=== PATIENT | male | born 1980 | race Caucasian/White ===

== ENCOUNTER 2017-04-16 20:03 | Emergency (ER) | payer MEDICAID, SELFPAY ==
[~2017-04-16] VITALS: Ht 175.3 cm; Wt 80.0 kg
[2017-04-16 20:05] VITALS: BP 109/75
[2017-04-16 20:33] LABS: CULTURE INDICATED? YES; MICROSCOPIC INDICATED
[2017-04-16] MEDS ORDERED: CEFTRIAXONE 250 MG ONE (21:25)
[2017-04-16] MEDS ORDERED: AZITHROMYCIN 500 MG TABLET ONE (21:25)
[2017-04-16] MEDS ORDERED: AZITHROMYCIN 500 MG TABLET PO ONE (21:30)
[2017-04-16] MEDS ORDERED: CEFTRIAXONE 1,000 MG IM ONE (21:30)
== END 2017-04-16 21:56 | disposition home or self-care (01) ==
LOC: ED 21:00
DX: N30.90 Cystitis, unspecified without hematuria (principal); N34.1 Nonspecific urethritis
CPT/HCPCS: 81001; 87086; 96372; 99284; J0696

== ENCOUNTER 2018-06-21 00:34 | Emergency (ER) | payer MEDICAID ==
[~2018-06-21] VITALS: Ht 175.3 cm; Wt 76.7 kg
[2018-06-21 00:36] VITALS: BP 131/78
== END 2018-06-21 00:56 | disposition home or self-care (01) ==
LOC: ED 00:55
DX: B86 Scabies (principal); F15.20 Other stimulant dependence, uncomplicated; F17.210 Nicotine dependence, cigarettes, uncomplicated
CPT/HCPCS: 99283

== ENCOUNTER 2018-09-21 10:43 | Emergency (ER) | payer MEDICAID ==
[~2018-09-21] VITALS: Ht 175.3 cm; Wt 80.9 kg
[2018-09-21 12:36] VITALS: BP 110/71
== END 2018-09-21 12:46 | disposition home or self-care (01) ==
LOC: ED 12:40
DX: F15.159 Other stimulant abuse with stimulant-induced psychotic disorder, unspecified (principal); F12.159 Cannabis abuse with psychotic disorder, unspecified; T40.7X5A Adverse effect of cannabis (derivatives), initial encounter; F41.9 Anxiety disorder, unspecified; F17.200 Nicotine dependence, unspecified, uncomplicated; Z72.9 Problem related to lifestyle, unspecified; Z90.81 Acquired absence of spleen; Y92.89 Other specified places as the place of occurrence of the external cause
CPT/HCPCS: 82962; 99284

== ENCOUNTER 2018-09-21 16:10 | Emergency (ER) | payer MEDICAID | END 2018-09-21 16:29 | disposition left against medical advice (07) | LOC: ED 16:23 | DX: F15.129 Other stimulant abuse with intoxication, unspecified (principal); Z72.9 Problem related to lifestyle, unspecified; Z90.81 Acquired absence of spleen | CPT/HCPCS: 99283 ==

== ENCOUNTER 2018-09-26 00:25 | Emergency (ER) | payer MEDICAID ==
[~2018-09-26] VITALS: Ht 175.3 cm; Wt 79.0 kg
[2018-09-26 00:31] VITALS: BP 123/94
== END 2018-09-26 01:05 | disposition home or self-care (01) ==
LOC: ED 01:00
DX: B86 Scabies (principal)
CPT/HCPCS: 99283

== ENCOUNTER 2018-10-01 21:44 | Emergency (ER) | payer SELFPAY ==
[~2018-10-01] VITALS: Ht 175.3 cm; Wt 79.0 kg
[2018-10-01 21:47] VITALS: BP 139/84
[2018-11-27] MEDS ORDERED: GABA600T7 PO (06:30)
== END 2018-10-01 23:09 | disposition home or self-care (01) ==
LOC: ED 22:33
DX: T14.8XXA Other injury of unspecified body region, initial encounter (principal); F17.210 Nicotine dependence, cigarettes, uncomplicated; Z72.9 Problem related to lifestyle, unspecified; W57.XXXA Bitten or stung by nonvenomous insect and other nonvenomous arthropods, initial encounter; Y93.89 Activity, other specified; Y92.89 Other specified places as the place of occurrence of the external cause; Y99.8 Other external cause status
CPT/HCPCS: 99281

== ENCOUNTER 2019-01-03 15:54 | Inpatient (IN) | payer MEDICAID, OTHER ==
[~2019-01-03] VITALS: Ht 175.3 cm; Wt 83.3 kg
[~2019-01-03 15:54] MED LIST: GABA600T7 PO
--- NOTE | 2019-01-03 16:06 | NUR ---
VANESSA CAMPA FROM LONG-TERM. PT ARRESTED 12/30/18, THEN TODAY HE'S BEEN ALTERED AND VS CHANGED. 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 PT SUSPECTED OF SMUGGLING METH INTO LONG-TERM. ANOTHER INMATE TESTED POSITIVE FOR MET AND STATED IT WAS BOUGHT FROM THIS PT. PT RESTLESS AND ALTERED AT THIS TIME. PT AWAKE, BUT DOES NOT ANSWER QUESTIONS. MED HX GIVEN BY EMS AND [facility] DEPUTIES. PT HANDS AND FEET SHACKLED TOGETHER. 2 [facility] AT BEDSIDE. CONNECTED TO MONITORING.
[2019-01-03 17:06] LABS: BASOPHILS # (AUTO) 0.05 x10^3/uL (0-0.1); BASOPHILS % (AUTO) 0 % (0-1); EOSINOPHILS % (AUTO) 0 % (1-7); LYMPHOCYTES # (AUTO) 1.63 x10^3/uL (1-3.4); LYMPHOCYTES % (AUTO) 13 % (22-44); MD NO; MEAN CORPUSCULAR HEMOGLOBIN 27.6 pg (27.5-34.5); MEAN CORPUSCULAR HGB CONC 32.3 g/dL (33.2-36.2); MEAN CORPUSCULAR VOLUME 85.4 fL (81-97); MEAN PLATELET VOLUME 7.4 fL (7.4-10.4); MONOCYTES # (AUTO) 0.52 x10^3/uL (0.2-0.8); MONOCYTES % (AUTO) 4 % (2-9); NEUTROPHILS # (AUTO) 10.56 x10^3/uL (1.8-6.8); NEUTROPHILS % (AUTO) 83 % (42-75); PLATELET COUNT 482 x10^3/uL (130-400); RED BLOOD COUNT 5.44 x10^6/uL (4.38-5.82); RED CELL DISTRIBUTION WIDTH 14.1 % (9.4-14.8)
[2019-01-03 17:14] LABS: ALBUMIN 4.7 g/dL (3.4-5.0); ANION GAP 6 mmol/L (5-15); CALCIUM 9.6 mg/dL (8.5-10.1); CHLORIDE 107 mmol/L (98-107); SALICYLATE LEVEL 2.2 mg/dL (2.8-20.0)
[2019-01-03 17:15] LABS: CREATININE 1.21 mg/dL (0.7-1.3)
--- NOTE | 2019-01-03 17:53 | NUR ---
PT ATTEMPTED TO URINATE W/O RESULTS. PT RESTING ON GURNEY WITH 2 SHERRIFF AT [facility]. PEG.
--- NOTE | 2019-01-03 18:22 | NUR ---
PT LAYING ON GURNEY. ATTEMPTED TO URINATE W/O RESULTS. PEG. CONTINUES TO BE SHACKLED WITH 2 [employer] OFFICERS AT BEDSIDE.
[2019-01-03 19:28] LABS: AMPHETAMINE SCREEN, URINE Positive (Negative); BARBITURATE SCREEN, URINE Negative (Negative); BENZODIAZEPINE SCREEN, URINE Negative (Negative); CANNABINOID SCREEN, URINE Negative (Negative); COCAINE SCREEN, URINE Negative (Negative); METHADONE SCREEN, URINE Negative (Negative); OPIATE SCREEN, URINE Negative (Negative)
--- NOTE | 2019-01-03 19:28 | NUR ---
REPORT OF PT FROM TANI AVILES AND ASSUMING CARE OF PT AT THIS TIME.
[2019-01-03] MEDS ORDERED: LORazepam 2 MG/ML, 1ML ONE (19:39)
--- NOTE | 2019-01-03 19:44 | NUR ---
PT MEDICATED PER MAR FOR AGITATION.
[2019-01-03] MEDS ORDERED: LORazepam 2 MG/ML, 1ML IM ONE (20:00)
--- NOTE | 2019-01-03 20:11 | NUR ---
PT CONTINUES TO REMAIN AGITATED AFTER MEDICATION PER APR. DR. SOLIS NOTIFIED FOR REQUEST FOR NEW ORDERS.
[2019-01-03] MEDS ORDERED: ZIPRASIDONE 20 MG INJ IM ONE ×2 (20:22→20:30)
[2019-01-03] MEDS ORDERED: PLEASE ENTER HEIGHT AND WEIGHT MC SCH (20:23)
--- NOTE | 2019-01-03 20:29 | NUR ---
REPORT OF PT TO TANI AUGUSTINE. PT MEDICATED FOR AGITATION PER MAR. AWAITING EFFECTS OF MEDICATION PRIOR TO IV ACCESS FOR STAFF SAFETY.
[2019-01-03] MEDS ORDERED: POLYETHYLENE GLYCOL 17 GM PACKET PO PRN (21:30)
[2019-01-03] MEDS ORDERED: ACETAMINOPHEN 325 MG TABLET PO PRN (21:30)
[2019-01-03] MEDS ORDERED: BISACODYL 10 MG SUPP PR PRN (21:30)
[2019-01-03] MEDS ORDERED: DOCUSATE 100 MG CAPSULE PO PRN (21:30)
[2019-01-03] MEDS ORDERED: ONDANSETRON ODT 4 MG PO PRN (21:30)
[2019-01-03 21:44] LABS: HEMOGLOBIN A1C 5.6 % (4.2-6.3)
[2019-01-03 21:46] LABS: FREE T4 (FREE THYROXINE) 1.45 ng/dL (0.76-1.46)
--- NOTE | 2019-01-03 21:46 | NUR ---
PT HEADED TO FLOOR VIA NATHALIA WITH LIMA AT THIS TIME.
[2019-01-03] MEDS: D5%-0.9% NACL 1,000 ML IV SCH (22:34)
[2019-01-03 22:46] VITALS: BP 100/65
[2019-01-04 02:28] VITALS: BP 102/74
[2019-01-04] MEDS: D5%-0.9% NACL 1,000 ML IV SCH (05:44)
[2019-01-04 06:01] LABS: BASOPHILS % (AUTO) 2 % (0-1); EOSINOPHILS # (AUTO) 0.07 x10^3/uL (0-0.4); EOSINOPHILS % (AUTO) 1 % (1-7); LYMPHOCYTES # (AUTO) 2.94 x10^3/uL (1-3.4); LYMPHOCYTES % (AUTO) 44 % (22-44); MD NO; MEAN CORPUSCULAR HEMOGLOBIN 27.7 pg (27.5-34.5); MEAN CORPUSCULAR HGB CONC 32.4 g/dL (33.2-36.2); MEAN CORPUSCULAR VOLUME 85.5 fL (81-97); MEAN PLATELET VOLUME 7.4 fL (7.4-10.4); MONOCYTES # (AUTO) 0.73 x10^3/uL (0.2-0.8); MONOCYTES % (AUTO) 11 % (2-9); NEUTROPHILS # (AUTO) 2.79 x10^3/uL (1.8-6.8); NEUTROPHILS % (AUTO) 42 % (42-75); PLATELET COUNT 462 x10^3/uL (130-400); RED CELL DISTRIBUTION WIDTH 14.3 % (9.4-14.8)
[2019-01-04 06:08] LABS: ALANINE AMINOTRANSFERASE 31 U/L (12-78); ALBUMIN 3.8 g/dL (3.4-5.0); ANION GAP 4 mmol/L (5-15); CALCIUM 8.7 mg/dL (8.5-10.1); CHLORIDE 107 mmol/L (98-107)
[2019-01-04 06:13] LABS: ALKALINE PHOSPHATASE 77 U/L (45-117); BILIRUBIN,TOTAL 0.7 mg/dL (0.2-1.0); CHOL/HDL RATIO 6.3; CHOLESTEROL, TOTAL 226 mg/dL (140-239); CREATININE 1.23 mg/dL (0.7-1.3); HDL CHOL % 16 % (26-37); HDL CHOLESTEROL (DIRECT) 36 mg/dL (40-60); LDL CHOLESTEROL,CALCULATED 174 mg/dL (54-169); LDL/HDL RATIO 4.8 (0.5-3.0); TOTAL PROTEIN 8.2 g/dL (6.4-8.2); TRIGLYCERIDES 79 mg/dL (50-200); VLDL CHOLESTEROL 16 mg/dL (0-25)
[2019-01-04] MEDS ORDERED: SODIUM CHLORIDE 0.9% 1,000 ML IV SCH (07:30)
[2019-01-04 08:40] VITALS: BP 118/66
[2019-01-04] MEDS: D5%-0.45% NACL 1,000 ML IV SCH ×2 (12:30→19:10)
[2019-01-04] MEDS: OLANZAPINE 10 MG TABLET PO SCH (14:00)
[2019-01-04] MEDS: ENOXAPARIN 40 MG/0.4 ML SQ SCH (14:30)
[2019-01-04] MEDS ORDERED: OLANZAPINE 5 MG TABLET ONE (14:40)
[2019-01-04 19:35] VITALS: BP 100/74
[2019-01-05 00:41] VITALS: BP 93/62
[2019-01-05] MEDS: D5%-0.45% NACL 1,000 ML IV SCH ×4 (01:50→21:06)
[2019-01-05 06:46] LABS: BASOPHILS # (AUTO) 0.06 x10^3/uL (0-0.1); BASOPHILS % (AUTO) 1 % (0-1); EOSINOPHILS # (AUTO) 0.14 x10^3/uL (0-0.4); EOSINOPHILS % (AUTO) 1 % (1-7); LYMPHOCYTES # (AUTO) 3.72 x10^3/uL (1-3.4); LYMPHOCYTES % (AUTO) 36 % (22-44); MD NO; MEAN CORPUSCULAR HEMOGLOBIN 28.2 pg (27.5-34.5); MEAN CORPUSCULAR HGB CONC 32.3 g/dL (33.2-36.2); MEAN CORPUSCULAR VOLUME 87.2 fL (81-97); MEAN PLATELET VOLUME 7.8 fL (7.4-10.4); MONOCYTES # (AUTO) 0.81 x10^3/uL (0.2-0.8); MONOCYTES % (AUTO) 8 % (2-9); NEUTROPHILS # (AUTO) 5.53 x10^3/uL (1.8-6.8); NEUTROPHILS % (AUTO) 54 % (42-75); PLATELET COUNT 465 x10^3/uL (130-400); RED BLOOD COUNT 4.86 x10^6/uL (4.38-5.82); RED CELL DISTRIBUTION WIDTH 14.3 % (9.4-14.8)
[2019-01-05 06:54] LABS: ALBUMIN 3.8 g/dL (3.4-5.0); CALCIUM 8.7 mg/dL (8.5-10.1); CHLORIDE 107 mmol/L (98-107)
[2019-01-05 06:58] LABS: ALANINE AMINOTRANSFERASE 29 U/L (12-78); ALKALINE PHOSPHATASE 79 U/L (45-117); BILIRUBIN,TOTAL 0.5 mg/dL (0.2-1.0); CREATININE 1.24 mg/dL (0.7-1.3); TOTAL PROTEIN 7.9 g/dL (6.4-8.2)
[2019-01-05 07:03] LABS: ANION GAP 4 mmol/L (5-15)
[2019-01-05 08:24] VITALS: BP 103/61
[2019-01-05] MEDS: OLANZAPINE 10 MG TABLET PO SCH (08:26)
[2019-01-05 12:44] LABS: MICROSCOPIC AUTO
[2019-01-05 12:46] LABS: CULTURE INDICATED? YES
[2019-01-05] MEDS: ENOXAPARIN 40 MG/0.4 ML SQ SCH (14:30)
[2019-01-05 15:31] VITALS: BP 104/66
[2019-01-05 20:06] VITALS: BP 120/65
[2019-01-06 00:04] VITALS: BP 111/71
[2019-01-06] MEDS: D5%-0.45% NACL 1,000 ML IV SCH ×3 (04:30→17:50)
[2019-01-06] MEDS: OLANZAPINE 10 MG TABLET PO SCH (07:44)
[2019-01-06 09:57] VITALS: BP 103/68
[2019-01-06] MEDS: ENOXAPARIN 40 MG/0.4 ML SQ SCH (14:30)
[2019-01-06 15:03] VITALS: BP 106/67
[2019-01-06 19:30] VITALS: BP 108/63
[2019-01-07] MEDS: D5%-0.45% NACL 1,000 ML IV SCH ×2 (00:30→08:00)
[2019-01-07 01:28] VITALS: BP 95/65
[2019-01-07] MEDS: OLANZAPINE 10 MG TABLET PO SCH (09:00)
[2019-01-07 09:10] VITALS: BP 111/71
[2019-01-07] MEDS ORDERED: OLAN10TA9 PO (12:51)
== END 2019-01-07 15:31 | disposition home or self-care (01) | DRG 52 ==
LOC: ED 18:47 → EDIP 19:47 → 4WST 21:54
PROVIDERS: ADMIT Internal Medicine; ATTEND Hospitalist
DX: G92 Toxic encephalopathy (principal); E87.5 Hyperkalemia; F22 Delusional disorders; F15.129 Other stimulant abuse with intoxication, unspecified; F17.200 Nicotine dependence, unspecified, uncomplicated; Z90.81 Acquired absence of spleen; G89.29 Other chronic pain; R94.31 Abnormal electrocardiogram [ECG] [EKG]
CPT/HCPCS: 36415; 80048; 80053; 80061; 80307; 81001; 82040; 83036; 83735; 84100; 84439; 84443; 85025; 87086; 93005; G0378; J3486; J7042; J2060

== ENCOUNTER 2019-02-04 01:18 | Emergency (ER) | payer MEDICAID, OTHER ==
[~2019-02-04] VITALS: Ht 177.8 cm; Wt 68.0 kg
[~2019-02-04 01:18] MED LIST changes: +OLAN10TA9 PO
[2019-02-04] MEDS ORDERED: LORazepam 1MG TABLET PO ONE (01:30)
[2019-02-04 01:47] LABS: BASOPHILS % (AUTO) 0 % (0-1); EOSINOPHILS # (AUTO) 0.14 x10^3/uL (0-0.4); EOSINOPHILS % (AUTO) 1 % (1-7); LYMPHOCYTES # (AUTO) 1.36 x10^3/uL (1-3.4); LYMPHOCYTES % (AUTO) 11 % (22-44); MD NO; MEAN CORPUSCULAR HEMOGLOBIN 27.4 pg (27.5-34.5); MEAN CORPUSCULAR HGB CONC 32.2 g/dL (33.2-36.2); MEAN CORPUSCULAR VOLUME 85.1 fL (81-97); MEAN PLATELET VOLUME 7.8 fL (7.4-10.4); MONOCYTES # (AUTO) 0.14 x10^3/uL (0.2-0.8); MONOCYTES % (AUTO) 1 % (2-9); NEUTROPHILS # (AUTO) 10.79 x10^3/uL (1.8-6.8); NEUTROPHILS % (AUTO) 87 % (42-75); PLATELET COUNT 331 x10^3/uL (130-400); RED BLOOD COUNT 5.24 x10^6/uL (4.38-5.82); RED CELL DISTRIBUTION WIDTH 13.4 % (9.4-14.8)
[2019-02-04 01:58] LABS: ALBUMIN 4.2 g/dL (3.4-5.0); ANION GAP 6 mmol/L (5-15); CALCIUM 8.9 mg/dL (8.5-10.1); CHLORIDE 107 mmol/L (98-107); CREATININE 1.16 mg/dL (0.7-1.3)
[2019-02-04] MEDS ORDERED: LORazepam 1MG TABLET ONE (01:58)
[2019-02-04] MEDS ORDERED: MAALOX/HYOSCYAMINE/LIDOCAINE 45 ML BTL ONE (02:02)
[2019-02-04] MEDS ORDERED: MAALOX/HYOSCYAMINE/LIDOCAINE 45 ML BTL PO ONE (02:30)
[2019-02-04 02:35] VITALS: BP 121/81
== END 2019-02-04 03:25 | disposition home or self-care (01) ==
LOC: ED 02:32
DX: F41.1 Generalized anxiety disorder (principal); R23.8 Other skin changes; R11.2 Nausea with vomiting, unspecified; M79.652 Pain in left thigh; F17.200 Nicotine dependence, unspecified, uncomplicated
CPT/HCPCS: 36415; 80048; 82040; 85025; 93005; 99284

== ENCOUNTER 2019-02-06 11:15 | Emergency (ER) | payer MEDICAID ==
[~2019-02-06] VITALS: Ht 175.3 cm; Wt 80.5 kg
--- NOTE | 2019-02-06 11:33 | NUR ---
AGILE SCRUM COACH NOTE: EKG DONE IN TRIAGE REVIEWED BY EDMD
--- NOTE | 2019-02-06 11:54 | NUR ---
PT HERE WITH C/O EPIGASTRIC CHEST PAIN. PT STATES "IT AGUERO SO BAD EVERY TIME I EAT THAT I THROW UP AFTER EVERY MEAL. I ALMOST CALLED AN AMBULANCE. ITS BETTER WHEN I'M LAYING FLAT. I WAS SEEN HERE BEFORE A FEW DAYS AGO FOR THIS THING AND THEY GAVE ME SOME PEPPERMINT THING AND IT WAS DELICIOUS." PT AAO X 4, NAD, ROOM AIR, CALL LIGHT WITHIN REACH AND DRESSED IN GOWN AND ATTACHED TO MONITOR. SIDERAIL X [address] MED REC COMPLETED.
--- NOTE | 2019-02-06 12:10 | NUR ---
AT BEDSIDE FOR EXAM.
[2019-02-06] MEDS ORDERED: MAALOX/HYOSCYAMINE/LIDOCAINE 45 ML BTL PO ONE (12:30)
[2019-02-06] MEDS ORDERED: SODIUM CHLORIDE FLUSH 10ML SYR IVF ONE (12:30)
[2019-02-06] MEDS ORDERED: ONDANSETRON 2MG/ML, 2ML IVPush ONE (12:30)
[2019-02-06] MEDS ORDERED: FAMOTIDINE 20 MG/2 ML IV ONE (12:30)
[2019-02-06 12:40] LABS: BASOPHILS # (AUTO) 0.02 x10^3/uL (0-0.1); BASOPHILS % (AUTO) 0 % (0-1); EOSINOPHILS # (AUTO) 0.04 x10^3/uL (0-0.4); EOSINOPHILS % (AUTO) 1 % (1-7); LYMPHOCYTES # (AUTO) 1.91 x10^3/uL (1-3.4); LYMPHOCYTES % (AUTO) 32 % (22-44); MD NO; MEAN CORPUSCULAR HEMOGLOBIN 27.2 pg (27.5-34.5); MEAN CORPUSCULAR HGB CONC 32.6 g/dL (33.2-36.2); MEAN CORPUSCULAR VOLUME 83.7 fL (81-97); MEAN PLATELET VOLUME 7.8 fL (7.4-10.4); MONOCYTES # (AUTO) 0.68 x10^3/uL (0.2-0.8); MONOCYTES % (AUTO) 11 % (2-9); NEUTROPHILS # (AUTO) 3.35 x10^3/uL (1.8-6.8); NEUTROPHILS % (AUTO) 56 % (42-75); PLATELET COUNT 311 x10^3/uL (130-400); RED BLOOD COUNT 4.87 x10^6/uL (4.38-5.82); RED CELL DISTRIBUTION WIDTH 13.9 % (9.4-14.8)
[2019-02-06] MEDS ORDERED: MAALOX/HYOSCYAMINE/LIDOCAINE 45 ML BTL ONE (12:48)
[2019-02-06] MEDS ORDERED: ONDANSETRON 2MG/ML, 2ML ONE (12:48)
[2019-02-06] MEDS ORDERED: FAMOTIDINE 20 MG/2 ML ONE (12:48)
[2019-02-06 12:49] VITALS: BP 121/73
--- NOTE | 2019-02-06 12:50 | NUR ---
PT MEDICATED PER ORDERS. PIV ESTABLISHED BY THIS RN.
[2019-02-06 12:53] LABS: ALBUMIN 3.7 g/dL (3.4-5.0); ANION GAP 4 mmol/L (5-15); CALCIUM 8.5 mg/dL (8.5-10.1); CHLORIDE 107 mmol/L (98-107)
[2019-02-06 12:56] LABS: ALANINE AMINOTRANSFERASE 44 U/L (12-78); ALKALINE PHOSPHATASE 63 U/L (45-117); BILIRUBIN,TOTAL 0.3 mg/dL (0.2-1.0); CREATININE 1.04 mg/dL (0.7-1.3); TOTAL PROTEIN 7.6 g/dL (6.4-8.2)
[2019-02-06 13:23] LABS: MICROSCOPIC INDICATED
[2019-02-06 13:30] LABS: CULTURE INDICATED? NO
[2019-02-06 13:32] LABS: AMPHETAMINE SCREEN, URINE Negative (Negative); BARBITURATE SCREEN, URINE Negative (Negative); BENZODIAZEPINE SCREEN, URINE Negative (Negative); CANNABINOID SCREEN, URINE Negative (Negative); COCAINE SCREEN, URINE Negative (Negative); METHADONE SCREEN, URINE Negative (Negative); OPIATE SCREEN, URINE Negative (Negative)
--- NOTE | 2019-02-06 13:36 | NUR ---
ALL RESULTS BACK AT THIS TIME, CHART UP FOR RECHECK.
--- NOTE | 2019-02-06 13:51 | NUR ---
AT BEDSIDE FOR REASSESSMENT.
--- NOTE | 2019-02-06 14:27 | NUR ---
Patient/Caregiver given discharge instructions and they have confirmed that they understand the instructions. Patient ambulatory with steady gait. PIV REMOVED BY THIS RN.
== END 2019-02-06 15:01 | disposition home or self-care (01) ==
LOC: ED 14:26
DX: K21.0 Gastro-esophageal reflux disease with esophagitis (principal); K29.00 Acute gastritis without bleeding; F17.200 Nicotine dependence, unspecified, uncomplicated
CPT/HCPCS: 36415; 80053; 80307; 81001; 83690; 85025; 93005; 96374; 96375; 99284; J2405; J3490

== ENCOUNTER 2019-02-14 11:09 | Emergency (ER) | payer MEDICAID ==
[~2019-02-14] VITALS: Ht 175.3 cm; Wt 83.5 kg
[2019-02-14 11:42] VITALS: BP 102/60
[2019-02-14] MEDS ORDERED: IBUPROFEN 600 MG TABLET PO ONE (12:00)
[2019-02-14] MEDS ORDERED: IBUPROFEN 200 MG TABLET ONE (12:04)
[2019-02-14] MEDS ORDERED: IBUPROFEN 800 MG TABLET PO ONE (12:30)
--- NOTE | 2019-02-14 12:46 | NUR ---
Patient given discharge instructions and they have confirmed that they understand the instructions. Patient ambulatory with steady gait.
== END 2019-02-14 12:47 | disposition home or self-care (01) ==
LOC: ED 12:41
DX: S90.31XA Contusion of right foot, initial encounter (principal); K21.9 Gastro-esophageal reflux disease without esophagitis; F17.200 Nicotine dependence, unspecified, uncomplicated; Z72.9 Problem related to lifestyle, unspecified; Z59.0 Homelessness; Z90.81 Acquired absence of spleen; W22.8XXA Striking against or struck by other objects, initial encounter; Y93.89 Activity, other specified; Y92.89 Other specified places as the place of occurrence of the external cause; Y99.8 Other external cause status
CPT/HCPCS: 99283

== ENCOUNTER 2019-02-25 00:01 | Emergency (ER) | payer MEDICAID ==
[~2019-02-25] VITALS: Ht 175.3 cm; Wt 78.4 kg
[2019-02-25 00:14] VITALS: BP 134/77
== END 2019-02-25 01:59 | disposition home or self-care (01) ==
LOC: ED 01:35
DX: M25.542 Pain in joints of left hand (principal); M25.541 Pain in joints of right hand; F22 Delusional disorders; M25.442 Effusion, left hand; M25.441 Effusion, right hand
CPT/HCPCS: 99281

== ENCOUNTER 2020-07-03 17:34 | Emergency (ER) | payer MEDICAID ==
[~2020-07-03] VITALS: Ht 175.3 cm; Wt 100.0 kg
[2020-07-03 17:52] VITALS: BP 139/88
--- NOTE | 2020-07-03 19:50 | NUR ---
D/C INSTRUCTIONS, MEDS & F/U APPT RV'WD WITH PT. RX GIVEN X2. PT AMBULATED OUT OF ED WITHOUT DIFFICULTY.
== END 2020-07-03 19:58 | disposition home or self-care (01) ==
LOC: ED 19:52
DX: L03.211 Cellulitis of face (principal); L02.01 Cutaneous abscess of face
CPT/HCPCS: 99283

== ENCOUNTER 2020-07-11 15:34 | Emergency (ER) | payer MEDICAID ==
[~2020-07-11] VITALS: Ht 175.3 cm; Wt 92.6 kg
--- NOTE | 2020-07-11 16:20 | NUR ---
Pt states there is mold in his place of residence at the [facility]. Pt denies itchiness, states he sees spores coming out of his upper extremities and nose when he rubs tomato juice on himself. LOLITA Bardales to bedside for eval. Pt with PEG.
[2020-07-11 16:25] VITALS: BP 114/84
== END 2020-07-11 16:43 | disposition home or self-care (01) ==
LOC: ED 16:30
DX: L03.114 Cellulitis of left upper limb (principal); L03.113 Cellulitis of right upper limb; K21.9 Gastro-esophageal reflux disease without esophagitis; F17.210 Nicotine dependence, cigarettes, uncomplicated
CPT/HCPCS: 99283; 99406

== ENCOUNTER 2020-08-07 14:26 | Emergency (ER) | payer MEDICAID ==
[~2020-08-07] VITALS: Ht 175.3 cm; Wt 93.9 kg
--- NOTE | 2020-08-07 15:11 | NUR ---
lockstitch back maker completed. Pt changed into gown and placed on bedside monitor. Pt reports cough without SOB and body aches all over for 3-4 days. Pt is very restless, rapid but coherent and oriented speech noted, and hx TBI. Pt states he has a 1900 curfew and is hoping he will be out and done by then. Comfort measures provided with call light in reach and education on unknown timeframe of stay due to changes based on results of findings as they come up making projected length of stay unable to be provided at this time.
[2020-08-07] MEDS ORDERED: KETOROLAC 30 MG/1 ML IM ONE (15:30)
[2020-08-07] MEDS ORDERED: KETOROLAC 30 MG/1 ML ONE (16:28)
--- NOTE | 2020-08-07 16:34 | NUR ---
Pt swabbed for covid, Toradol IM given and D/C instructions given. Pt states he want ssomething for Staph and won't leave until he speaks to PA again.
--- NOTE | 2020-08-07 16:42 | NUR ---
After speaking with PA, pt notified PA is not coming back and she stated to wash face with warm soapy water and place Bacitracin to open areas of concern and then follow up with PCP. Pt states Bacitracin does not help and he will return to ED tomorrow for staph assessment and tx.
[2020-08-07 16:43] VITALS: BP 129/78
== END 2020-08-07 16:45 | disposition home or self-care (01) ==
LOC: ED 14:45
DX: J06.9 Acute upper respiratory infection, unspecified (principal); Z20.822 Contact with and (suspected) exposure to COVID-19; J02.9 Acute pharyngitis, unspecified
CPT/HCPCS: 87081; 87880; 96372; 99283; J1885; U0003; U0005

== ENCOUNTER 2020-09-28 15:50 | Emergency (ER) | payer MEDICAID ==
[~2020-09-28] VITALS: Ht 175.3 cm; Wt 89.3 kg
[~2020-09-28 15:50] MED LIST changes: +OLAN10TA69 PO; -OLAN10TA9 PO
[2020-09-28 15:53] VITALS: BP 150/88
--- NOTE | 2020-09-28 16:22 | NUR ---
PT SPITTING ON COUNTER, STATING "DON'T YOU SEE THE SPARKLY SPECS? THEY ARE SPORES FROM MY MOLD".
--- NOTE | 2020-09-28 16:49 | NUR ---
PT STATES "I'M GOING TO LEAVE BEFORE GETTING MY STUFF". PT AMBULATED STEADILY TO LOBBY.
== END 2020-09-28 16:50 | disposition admitted as inpatient to this hospital (09) ==
LOC: ED 16:02
DX: F23 Brief psychotic disorder (principal); K21.9 Gastro-esophageal reflux disease without esophagitis
CPT/HCPCS: 99284

== ENCOUNTER 2020-10-13 20:07 | Emergency (ER) | payer MEDICAID ==
[~2020-10-13] VITALS: Ht 175.3 cm; Wt 90.9 kg
[2020-10-13 20:13] VITALS: BP 104/65
--- NOTE | 2020-10-13 20:39 | NUR ---
Pt brought in by KATHERYN from [facility] c/o R arm,elbow "mold" infested skin infection. Pt states hx of same. Ongoing for a few weeks. Yellowish in nature, skin appears raw, some swelling noted. Minimal drainange. Skin appears wet. Pt states his mither who is also [facility] said they needed to call 91 because it appears infected. Pt has hx of TBI/Seizures/Sleep disorder. On Gabapentin 800mg daily and Eliquil 30mg. Pt has pressured speech, rambling quickly about cryptocurrency and how he brought [employer] from the [employer] to the [employer] stock market and how because of that, [employer] is trying to get back at the [place] which led them to create coronavirus. Which is also why the pt states he is not vaccinated and will not get vaccinated. Pt endorses h of substance abuse including meth, last use per pt x2 months ago. Pt is aert and oriented x4, GCS 15. In no acute distress.
[2020-10-13] MEDS ORDERED: MUPIROCIN OINT 2%, 15GM TP ONE (21:00)
--- NOTE | 2020-10-13 21:19 | NUR ---
Dressing change completed, pt tolerated well.
--- NOTE | 2020-10-13 21:43 | NUR ---
RECEIVED REPORT FROM TANI MASCORRO TO ASSUME CARE OF PT. AT THIS TIME. AWAITING D/C PAPERS.
== END 2020-10-13 21:56 | disposition home or self-care (01) ==
LOC: ED 21:02
DX: L03.113 Cellulitis of right upper limb (principal); F17.210 Nicotine dependence, cigarettes, uncomplicated; F15.10 Other stimulant abuse, uncomplicated; L98.498 Non-pressure chronic ulcer of skin of other sites with other specified severity
CPT/HCPCS: 99406

== ENCOUNTER 2020-10-15 11:05 | Emergency (ER) | payer MEDICAID ==
[~2020-10-15] VITALS: Ht 175.3 cm; Wt 92.2 kg
[2020-10-15 12:22] VITALS: BP 119/68
--- NOTE | 2020-10-15 14:12 | NUR ---
PT REFUSING ADAPTIC DRESSING, STATES HE DOESN'T WANT IT WRAPPED BECAUSE IT HURTS TO MUCH TO TAKE IT OFF. PT PROVIDED W/ ADAPTIC DRESSING TO USE AT HOME. NEOSPORIN APPLIED TO WOUND. PT AMBULATORY W/ A STEADY GAIT TO DC DESK. RESP EVEN AND UNLABORED, PEG.
--- NOTE | 2020-10-15 14:20 | NUR ---
PT PROVIDED W/ TAXI VOUCHER PER PT REQUEST.
== END 2020-10-15 14:14 | disposition home or self-care (01) ==
LOC: ED 14:08
DX: S50.811A Abrasion of right forearm, initial encounter (principal); Z76.0 Encounter for issue of repeat prescription; K21.9 Gastro-esophageal reflux disease without esophagitis; F17.210 Nicotine dependence, cigarettes, uncomplicated; X58.XXXA Exposure to other specified factors, initial encounter; Y93.89 Activity, other specified; Y92.89 Other specified places as the place of occurrence of the external cause; Y99.8 Other external cause status
CPT/HCPCS: 99406

== ENCOUNTER 2020-10-27 15:26 | Emergency (ER) | payer MEDICAID ==
[~2020-10-27] VITALS: Ht 175.3 cm; Wt 88.6 kg
[2020-10-27 15:51] VITALS: BP 132/86
--- NOTE | 2020-10-27 16:39 | NUR ---
NO ANSWER IN LOBBY FOR DISCHARGE
== END 2020-10-27 18:13 | disposition home or self-care (01) ==
LOC: ED 15:36
DX: S50.311A Abrasion of right elbow, initial encounter (principal); F15.959 Other stimulant use, unspecified with stimulant-induced psychotic disorder, unspecified; F22 Delusional disorders; X58.XXXA Exposure to other specified factors, initial encounter; Y93.89 Activity, other specified; Y92.89 Other specified places as the place of occurrence of the external cause; Y99.8 Other external cause status
CPT/HCPCS: 99282